=== PATIENT | female | born 1990 | race American Indian/Alaskan Native ===

== ENCOUNTER 2020-04-10 18:38 | Emergency (ER) | payer SELFPAY ==
--- NOTE | 2020-04-10 21:28 | Emergency Department Report ---
ED General Adult HPI - General Chief complaint: Urogenital-Female Stated complaint: VAGINAL DISCOMFORT Time Seen by Provider: 04/10/20 20:48 Source: patient Mode of arrival: Ambulatory Limitations: No Limitations - History of Present Illness Initial comments: 30-year-old -Ivorian female patient with history of hypertension presents with possible retained foreign body of the vagina x 3 days. Patient states 3 days ago she inserted 3 vaginal PERRL in her vaginal canal. She states when she went to remove them today, she only noted 1 vaginal domenic. She denies any pain, vaginal discharge, dysuria/hematuria/urinary frequency, or skin lesions/changes. Patient states it is possible that some of the pearls have fallen out over the past 3 days. - Related Data Allergies Allergy/AdvReac Type Severity Reaction Status Date / Time Penicillins Allergy Hives Verified 04/10/20 18:58 ED Review of Systems ROS: Stated complaint: VAGINAL DISCOMFORT Other details as noted in HPI Constitutional: denies: chills, fever Gastrointestinal: denies: abdominal pain, nausea, vomiting Genitourinary: denies: urgency, dysuria, frequency, hematuria, discharge, abnormal menses, dyspareunia Musculoskeletal: denies: back pain Skin: denies: rash, lesions, change in color Hematological/Lymphatic: denies: swollen glands ED Past Medical Hx - Past Medical History Previous Medical History?: Yes Hx Hypertension: Yes - Surgical History Past Surgical History?: No - Social History Smoking Status: Never Smoker Substance Use Type: Alcohol ED Physical Exam - General Limitations: No Limitations General appearance: alert, in no apparent distress, obese - Head Head exam: Present: atraumatic, normocephalic - Eye Eye exam: Present: normal appearance - Respiratory Respiratory exam: Absent: respiratory distress - Cardiovascular Cardiovascular Exam: Present: regular rate - External exam: Present: normal external exam Speculum exam: Present: normal speculum exam. Absent: erythema, foreign body, tissue - Neurological Exam Neurological exam: Present: alert, oriented X3, normal gait - Psychiatric Psychiatric exam: Present: normal affect, normal mood - Skin Skin exam: Present: warm, dry, intact, normal color. Absent: rash ED Course Vital Signs 04/10/20 04/10/20 04/10/20 18:59 21:20 21:35 Temperature 99.2 F Pulse Rate 103 H 99 H 96 H Respiratory 20 Rate Blood Pressure 193/113 Blood Pressure 182/105 [Right] O2 Sat by Pulse 100 100 100 Oximetry 04/10/20 21:36 Temperature Pulse Rate 94 H Respiratory 14 Rate Blood Pressure Blood Pressure [Right] O2 Sat by Pulse 97 Oximetry ED Medical Decision Making - Medical Decision Making 30-year-old -Ivorian female patient with history of hypertension presents with possible retained foreign body of the vagina x 3 days. Patient states 3 days ago she inserted 3 vaginal PERRL in her vaginal canal. She states when she went to remove them today, she only noted 1 vaginal domenic. She denies any pain, vaginal discharge, dysuria/hematuria/urinary frequency, or skin lesions/changes. Patient states it is possible that some of the pearls have fallen out over the past 3 days. No vaginal foreign bodies noted on pelvic exam. Patient's blood pressure noted to be significantly elevated. She does have a history of hypertension and states she has not taken her blood pressure medication today. Patient denies any headache, vision changes, chest pain, shortness of breath, dizziness, or other neurological symptoms. On repeat, her blood pressure is 182/105. Patient states she does currently have blood pressure medication at home and states she will take it once she gets there tonight. Discussed signs and symptoms that should prompt immediate return to the emergency department in detail patient verbalized understanding. Also recommend follow-up with primary care doctor within 2 days. She is well-appearing and stable for discharge home peer Critical care attestation.: If time is entered above; I have spent that time in minutes in the direct care of this critically ill patient, excluding procedure time. ED Disposition Clinical Impression: Uncontrolled hypertension Foreign body of vagina Qualifiers: Encounter type: initial encounter Qualified Code(s): T19.2XXA - Foreign body in vulva and vagina, initial encounter Disposition: DC-01 TO HOME OR SELFCARE Is pt being admited?: No Condition: Stable Instructions: Vaginal Foreign Body, Hypertension, Adult, Hypertension (ED) Referrals: PRIMARY CARE,MD [Primary Care Provider] - as needed
[2020-04-10 21:36] VITALS: BP 182/105
== END 2020-04-10 21:37 | disposition home or self-care (01) ==
LOC: ED 18:38
DX: T19.2XXA Foreign body in vulva and vagina, initial encounter (principal); I10 Essential (primary) hypertension; Z88.0 Allergy status to penicillin; X58.XXXA Exposure to other specified factors, initial encounter; Y93.89 Activity, other specified; Y92.89 Other specified places as the place of occurrence of the external cause; Y99.8 Other external cause status
CPT/HCPCS: 99282

== ENCOUNTER 2020-07-06 10:15 | Emergency (ER) | payer BC ==
[2020-07-06 13:46] LABS: Basophils % (Auto) 0.5 % (0.0-1.8); Eosinophils # (Auto) 0.1 K/mm3 (0.0-0.4); Eosinophils % (Auto) 2.1 % (0.0-4.3); Hematocrit 38.3 % (30.3-42.9); Hemoglobin 12.1 gm/dl (10.1-14.3); Lymphocytes % (Auto) 31.3 % (13.4-35.0); Mean Corpuscular HGB Conc 32 % (30-34); Mean Corpuscular Volume 72 fl (79-97); Monocytes # (Auto) 0.4 K/mm3 (0.0-0.8); Monocytes % (Auto) 6.8 % (0.0-7.3); Platelet Count 287 K/mm3 (140-440); Red Blood Count 5.35 M/mm3 (3.65-5.03); Red Cell Distribution Width 16.4 % (13.2-15.2)
[2020-07-06 14:03] LABS: Alanine Aminotransferase 35 units/L (7-56); Albumin 3.5 g/dL (3.9-5); Blood Urea Nitrogen 6 mg/dL (7-17); Calcium 8.5 mg/dL (8.4-10.2); Hemolysis Index 3
[2020-07-06 14:04] LABS: BUN/Creatinine Ratio 9
[2020-07-06 17:01] LABS: Bilirubin,Urine NEG (Negative); Blood,Urine NEG (Negative); Color,Urine Straw (Yellow); Protein,Urine <15 mg/dL mg/dL (Negative); Urobilinogen,Urine < 2.0 mg/dL (<2.0); WBC,Urine < 1.0 /HPF (0.0-6.0)
--- NOTE | 2020-07-06 20:33 | Emergency Department Report ---
ED Abdominal Pain HPI - General Chief Complaint: Abdominal Pain Stated Complaint: ABD/BACK PAIN PUI?: No Time Seen by Provider: 07/06/20 16:46 Source: patient Mode of arrival: Ambulatory Limitations: No Limitations - History of Present Illness Initial Comments: Patient is a 30-year-old female that presents emergency room with complaints of right flank pain rating to her right lower quadrant. Patient states symptoms started 5 days ago. Patient dates his symptoms are worsening. Patient denies nausea vomiting. Patient states the pain is a 7 out of 10. Patient states the pain is better with rest and worse with movement. Patient denies diarrhea. Patient denies chest pain or shortness of breath. Patient denies fever and chills. Patient denies dysuria. Patient denies recent travel. Patient denies recent international travel. Patient denies exposure to the novel coronavirus. Patient denies sick contacts. Patient denies fever and chills. Patient denies cough. Patient denies diarrhea. Patient denies coming in contact with anybody with symptoms of the novel coronavirus. Patient states she has a history of hypertension but ran out of her hypertensive medication 3 weeks ago. Patient is taking amlodipine 10 mg daily. MD Complaint: abdominal pain, flank pain -: Sudden, days(s) Location: R flank Radiation: RLQ Migration to: no migration Severity: severe Severity scale (0 -10): 7 Quality: stabbing Consistency: constant Improves With: rest Worsens With: movement Associated Symptoms: denies: nausea, vomiting, diarrhea, fever, chills, constipation, dysuria, hematemesis, hematochezia, melena, hematuria, anorexia, syncope - Related Data Previous Rx's Medication Instructions Recorded Last Taken Type Amlodipine Besylate [Norvasc] 10 mg PO DAILY #30 tablet 07/06/20 Unknown Rx Allergies Allergy/AdvReac Type Severity Reaction Status Date / Time Penicillins Allergy Hives Verified 04/10/20 18:58 ED Review of Systems ROS: Stated complaint: ABD/BACK PAIN Other details as noted in HPI Constitutional: denies: chills, fever Eyes: denies: eye pain, eye discharge, vision change ENT: denies: ear pain, throat pain Respiratory: denies: cough, shortness of breath, wheezing Cardiovascular: denies: chest pain, palpitations Endocrine: no symptoms reported Gastrointestinal: as per HPI, abdominal pain. denies: nausea, diarrhea Genitourinary: denies: urgency, dysuria, discharge Musculoskeletal: denies: back pain, joint swelling, arthralgia Skin: denies: rash, lesions Neurological: denies: headache, weakness, paresthesias Psychiatric: denies: anxiety, depression Hematological/Lymphatic: denies: easy bleeding, easy bruising ED Past Medical Hx - Past Medical History Previous Medical History?: Yes Hx Hypertension: Yes - Surgical History Past Surgical History?: No - Family History Family history: no significant - Social History Smoking Status: Never Smoker Substance Use Type: Alcohol - Medications Home Medications: Home Medications Medication Instructions Recorded Confirmed Last Taken Type Amlodipine Besylate [Norvasc] 10 mg PO DAILY #30 tablet 07/06/20 Unknown Rx ED Physical Exam - General Limitations: No Limitations General appearance: alert, in no apparent distress - Head Head exam: Present: atraumatic, normocephalic - Eye Eye exam: Present: normal appearance - ENT ENT exam: Present: mucous membranes moist - Neck Neck exam: Present: normal inspection - Respiratory Respiratory exam: Present: normal lung sounds bilaterally. Absent: respiratory distress - Cardiovascular Cardiovascular Exam: Present: regular rate, normal rhythm. Absent: systolic murmur, diastolic murmur, rubs, gallop - GI/Abdominal GI/Abdominal exam: Present: soft, tenderness (Right flank tenderness to palpation.), normal bowel sounds - Extremities Exam Extremities exam: Present: normal inspection - Back Exam Back exam: Present: normal inspection - Neurological Exam Neurological exam: Present: alert, oriented X3 - Psychiatric Psychiatric exam: Present: normal affect, normal mood - Skin Skin exam: Present: warm, dry, intact, normal color. Absent: rash ED Course Vital Signs 07/06/20 11:03 Temperature 98.2 F Pulse Rate 80 Respiratory 18 Rate Blood Pressure 207/109 [Right] O2 Sat by Pulse 100 Oximetry - Reevaluation(s) Reevaluation #1: I discussed all results and clinical findings with patient. I discussed plan of care with patient. Patient agrees with plan of care. Patient is stable for discharge. Patient will be discharged home. Patient given discharge instructions. Patient voiced understanding of discharge instructions. 07/06/20 21:55 ED Medical Decision Making - Lab Data Result diagrams: 07/06/20 13:03 07/06/20 13:03 - Radiology Data Radiology results: report reviewed CT ABDOMEN AND PELVIS WITHOUT CONTRAST INDICATION / CLINICAL INFORMATION: abd pain. TECHNIQUE: Axial CT images were obtained through the abdomen and pelvis without IV contrast. All CT scans at this location are performed using CT dose reduction for ALARA by means of automated exposure control. COMPARISON: None available. FINDINGS: LOWER CHEST: No significant abnormality. LIVER: No significant abnormality. GALLBLADDER: Tiny gallstones are noted in the decompressed urinary bladder. No acute cholecystitis. BILE DUCTS: No significant abnormality. PANCREAS: No significant abnormality. SPLEEN: No significant abnormality. ADRENALS: No significant abnormality. RIGHT KIDNEY / URETER: No significant abnormality. LEFT KIDNEY / URETER: No significant abnormality. STOMACH / SMALL BOWEL: No significant abnormality. COLON: Mild colonic diverticulosis without diverticulitis. APPENDIX: No significant abnormality. PERITONEUM: No free fluid. No free air. No fluid collection. LYMPH NODES: Shotty lymph nodes are noted in the retroperitoneum and root of the mesentery. None of which are enlarged according to CT size criteria. AORTA / ARTERIES: No significant abnormality. IVC / VEINS: No significant abnormality. URINARY BLADDER: No significant abnormality. REPRODUCTIVE ORGANS: Simple cysts are noted of bilateral ovaries, the largest on the left measures 5.3 cm and is likely physiologic. ADDITIONAL FINDINGS: None. SKELETAL SYSTEM: Mild degenerative changes are noted of the lower lumbar spine. Transitional vertebral anatomy is noted. IMPRESSION: 1. Cholelithiasis without acute cholecystitis. 2. Physiologic changes are noted of the uterus and bilateral ovaries. 3. Mild colonic diverticulosis without diverticulitis. - Medical Decision Making Patient is a 30-year-old female that presents emergency room with complaints of right flank pain and right abdominal pain. Patient had labs done which were essentially unremarkable. Patient had a CT scan to rule out a kidney stone or other acute process of the abdomen. Patient found to have cholelithiasis without cholecystitis and no other acute findings noted on the CT scan. Patient is stable for discharge. Patient will be discharged home. Patient given discharge instructions. - Differential Diagnosis Cholecystitis, cholelithiasis, kidney stone, flank pain, abdominal pain Critical care attestation.: If time is entered above; I have spent that time in minutes in the direct care of this critically ill patient, excluding procedure time. ED Disposition Clinical Impression: Right flank pain, Biliary colic Abdominal pain Qualifiers: Abdominal location: right lower quadrant Qualified Code(s): R10.31 - Right lower quadrant pain Cholelithiasis Qualifiers: Cholelithiasis location: gallbladder Cholecystitis presence: without cholecystitis Biliary obstruction: without biliary obstruction Qualified Code(s): K80.20 - Calculus of gallbladder without cholecystitis without obstruction Ovarian cyst Qualifiers: Laterality: unspecified laterality Qualified Code(s): N83.209 - Unspecified ovarian cyst, unspecified side Hypertension Qualifiers: Hypertension type: essential hypertension Qualified Code(s): I10 - Essential (primary) hypertension Disposition: TO HOME OR SELFCARE Is pt being admited?: No Does the pt Need Aspirin: No Condition: Stable Instructions: Abdominal Pain (ED), Cholelithiasis, Flank Pain, Adult, [id number], Biliary Colic, Adult, Gallbladder Eating Plan, Hypertension (ED) Additional Instructions: Patient to follow-up with primary care in 2 to 3 days. Patient to follow-up with general surgery and NETWORK TECHNICIAN in 2 to 3 days. Patient to rest. Patient to increase water. Patient to avoid fatty foods. Patient to eat a low-salt heart healthy diet. Patient to monitor blood pressure at home. Patient to keep a blood pressure log. Patient to take blood pressure log to all follow-up appo intments. Patient to take Tylenol or ibuprofen as needed for pain. Patient to take meds as directed. Patient to return to the ER if condition worsens, changes or new symptoms arise. Prescriptions: Amlodipine Besylate [Norvasc] 10 mg PO DAILY #30 tablet Referrals: PRIMARY CARE, [Primary Care Provider] - 2-3 Days DEON WISEMAN MD [Staff Physician] - 2-3 Days CARLITA SHIN DO [Staff Physician] - 2-3 Days Time of Disposition: 21:58
--- NOTE | 2020-07-06 21:35 | Cat Scan Report ---
CT ABDOMEN AND PELVIS WITHOUT CONTRAST INDICATION / CLINICAL INFORMATION: abd pain. TECHNIQUE: Axial CT images were obtained through the abdomen and pelvis without IV contrast. All CT scans at [facility] location are performed using CT dose reduction for ALARA by means of automated exposure control. COMPARISON: None available. FINDINGS: LOWER CHEST: No significant abnormality. LIVER: No significant abnormality. GALLBLADDER: Tiny gallstones are noted in the decompressed urinary bladder. No acute cholecystitis. BILE DUCTS: No significant abnormality. PANCREAS: No significant abnormality. SPLEEN: No significant abnormality. ADRENALS: No significant abnormality. RIGHT KIDNEY / URETER: No significant abnormality. LEFT KIDNEY / URETER: No significant abnormality. STOMACH / SMALL BOWEL: No significant abnormality. COLON: Mild colonic diverticulosis without diverticulitis. APPENDIX: No significant abnormality. PERITONEUM: No free fluid. No free air. No fluid collection. LYMPH NODES: Shotty lymph nodes are noted in the retroperitoneum and root of the mesentery. None of w hich are enlarged according to CT size criteria. AORTA / ARTERIES: No significant abnormality. IVC / VEINS: No significant abnormality. URINARY BLADDER: No significant abnormality. REPRODUCTIVE ORGANS: Simple cysts are noted of bilateral ovaries, the largest on the left measures 5. 3 cm and is likely physiologic. ADDITIONAL FINDINGS: None. SKELETAL SYSTEM: Mild degenerative changes are noted of the lower lumbar spine. Transitional vertebra l anatomy is noted. IMPRESSION: 1. Cholelithiasis without acute cholecystitis. 2. Physiologic changes are noted of the uterus and bilateral ovaries. 3. Mild colonic diverticulosis without diverticulitis. Signer Name: Reinier Roca MD Signed: 07/06/2020 9:30 PM Workstation Name: [id number]
[2020-07-06 22:04] VITALS: BP 160/97
== END 2020-07-06 22:10 | disposition home or self-care (01) ==
LOC: ED 10:15
DX: K80.20 Calculus of gallbladder without cholecystitis without obstruction (principal); N83.201 Unspecified ovarian cyst, right side; I10 Essential (primary) hypertension; Z79.899 Other long term (current) drug therapy; Z88.0 Allergy status to penicillin
CPT/HCPCS: 36415; 74176; 80053; 81001; 83690; 84702; 85025

== ENCOUNTER 2020-10-13 07:47 | Outpatient (CLI) | payer BC ==
--- NOTE | 2020-10-13 08:55 | Ultrasound Report ---
ULTRASOUND ABDOMEN, COMPLETE INDICATION / CLINICAL INFORMATION: CALCULUS OF GALLBLADDER W/O CHOLECYSTITIS W/O OBSTRUCTION. COMPARISON: None available. FINDINGS: PANCREAS: No significant abnormality. ABDOMINAL AORTA: No significant abnormality. IVC: No significant abnormality. LIVER: No significant abnormality. GALLBLADDER: No significant abnormality. BILE DUCTS: No significant abnormality. Common bile duct measures 2 mm. KIDNEYS: Right: 8.6 cm Left: 8.9 cm SPLEEN: No significant abnormality. FREE FLUID: None. ADDITIONAL FINDINGS: None. IMPRESSION: 1. Mild renal atrophy. No other acute findings. Signer Name: Gian Enriquez MD Signed: 10/13/2020 8:51 AM Workstation Name: [email or web address]
== END 2020-10-13 07:48 | disposition home or self-care (01) ==
LOC: US 07:47
PROVIDERS: ATTEND Surgery
DX: N26.1 Atrophy of kidney (terminal) (principal); K80.20 Calculus of gallbladder without cholecystitis without obstruction
CPT/HCPCS: 76700

== ENCOUNTER 2020-11-04 06:05 | Day surgery (SDC) | payer BC ==
[2020-11-03 10:15] LABS: Blood Urea Nitrogen 10 mg/dL (7-17); Calcium 9.4 mg/dL (8.4-10.2); Hemolysis Index 3
[2020-11-03 10:25] LABS: BUN/Creatinine Ratio 17
[2020-11-03 11:13] LABS: Hematocrit 33.7 % (30.3-42.9); Mean Corpuscular HGB Conc 33 % (30-34); Mean Corpuscular Volume 72 fl (79-97); Platelet Count 274 K/mm3 (140-440); Red Cell Distribution Width 16.7 % (13.2-15.2)
[2020-11-04] MEDS ORDERED: VANCOMYCIN/NS 1 GM/250 ML 1 GM/250 ML BAG IV NR (07:00)
[2020-11-04] MEDS ORDERED: VANCOMYCIN 1,750 MG in SODIUM CHLORIDE 0.9% 500 ML 500 ML IV NR (07:00)
[2020-11-04] MEDS ORDERED: fentaNYL 100 MCG/2 ML INJ ONE (07:07)
[2020-11-04] MEDS ORDERED: LIDOCAINE MPF (2%) 20 MG/1 ML VIAL 5 ML ONE (07:07)
[2020-11-04] MEDS ORDERED: ONDANSETRON 4 MG/2 ML INJ ONE (07:07)
[2020-11-04] MEDS ORDERED: dexAMETHasone 20 MG/5 ML VIAL ONE (07:07)
[2020-11-04] MEDS ORDERED: propofoL 200 MG/20 ML VIAL IV ONE (07:07)
[2020-11-04] MEDS ORDERED: LIDOCAINE (1%) 10 MG/1 ML VIAL 20 ML MDV ONE (07:11)
[2020-11-04] MEDS ORDERED: BUPIVACAINE/PF (0.25%) 2.5 MG/ML 30 ML VIAL INFILTRATI ONE ×2 (07:11→08:19)
--- NOTE | 2020-11-04 07:13 | Anesthesia Day of Surgery ---
Anesthesia Day of Surgery - Day of Surgery Patient Examined: Yes Patient H&P Reviewed: Yes Patient is NPO: Yes
--- NOTE | 2020-11-04 07:14 | Anesthesia Consultation ---
Anesthesia Consult and Med Hx Date of service: 11/04/20 - Airway Anesthetic Teeth Evaluation: Chipped ROM Head & Neck: Adequate Mental/Hyoid Distance: Adequate Mallampati Class: Class II Intubation Access Assessment: Good - Pre-Operative Health Status ASA Pre-Surgery Classification: ASA3 Proposed Anesthetic Plan: General - Pulmonary Hx Smoking: Yes Hx Asthma: Yes ( CHILD ONLY) Hx Sleep Apnea: No (OTILIO PRE SCREEN HIGH RISK) - Cardiovascular System Hx Hypertension: Yes (X 10 YRS) - Central Nervous System Hx Psychiatric Problems: No - Gastrointestinal Hx Gastroesophageal Reflux Disease: No - Hematic Hx Anemia: No Hx Sickle Cell Disease: No - Other Systems Hx Substance Use: Yes (THC- OCC.) Hx Cancer: No Hx Obesity: Yes
[2020-11-04] MEDS ORDERED: SCOPOLAMINE TRANSDERMAL PATCH 72 HR TD NR (08:00)
[2020-11-04] MEDS ORDERED: CELECOXIB 200 MG CAP PO NR (08:00)
[2020-11-04] MEDS ORDERED: ONDANSETRON 4 MG/2 ML INJ IV PRN (08:00)
[2020-11-04] MEDS ORDERED: HYDROmorphone 1 MG/1 ML INJ IV PRN ×2 (08:00)
[2020-11-04] MEDS ORDERED: MAGNESIUM OXIDE 400 MG TAB PO SCH (08:00)
[2020-11-04] MEDS ORDERED: ACETAMINOPHEN 500 MG TAB PO SCH (08:00)
[2020-11-04] MEDS ORDERED: MIDAZOLAM 2 MG/2 ML INJ IV NR (08:00)
[2020-11-04] MEDS ORDERED: LACTATED RINGERS 1,000 ML IV SCH (08:00)
[2020-11-04] MEDS ORDERED: LIDOCAINE (1%) 10 MG/1 ML VIAL 20 ML MDV INFILTRATI ONE (08:18)
[2020-11-04] MEDS ORDERED: SODIUM CHLORIDE 0.9% IRR 1,500 ML BOTTLE IR ONE (08:20)
[2020-11-04] MEDS ORDERED: SUCCINYLCHOLINE CHLORIDE 200 MG/10 ML INJ MDV ONE (08:30)
[2020-11-04] MEDS ORDERED: KETOROLAC 30 MG/1 ML INJ ONE (08:35)
[2020-11-04] MEDS ORDERED: NEOSTIGMINE 10MG/10 ML INJ MDV ONE ×3 (08:35)
[2020-11-04] MEDS ORDERED: SUGAMMADEX SODIUM 200 MG/2 ML VIAL IV ONE (08:45)
--- NOTE | 2020-11-04 08:52 | Short Stay Summary ---
Short Stay Documentation Date of service: 11/04/20 - History Principal diagnosis: symptomatic cholelithiasis H&P: obtained from office - Allergies and Medications Current Medications: Allergies Penicillins Allergy (Verified 04/10/20 18:58) Hives Home Medications Medication Instructions Recorded Confirmed Last Taken Type Losartan/Hydrochlorothiazide 1 each PO DAILY 10/26/20 10/26/20 Unknown History [Losartan-Hctz 50-12.5 mg Tab] Active Medications Acetaminophen (Acetaminophen 500 Mg Tab) 1,000 mg PO ONCE AARON Stop: 11/04/20 21:00 Celecoxib (Celecoxib 200 Mg Cap) 400 mg PO PREOP NR Stop: 11/04/20 21:00 Hydromorphone HCl (Hydromorphone 1 Mg/1 Ml Inj) 0.25 mg IV Q10MIN PRN PRN Reason: Pain, Moderate (4-6) Stop: 11/04/20 21:00 Hydromorphone HCl (Hydromorphone 1 Mg/1 Ml Inj) 0.5 mg IV Q10MIN PRN PRN Reason: Pain , Severe (7-10) Stop: 11/04/20 17:00 Vancomycin HCl 1,750 mg/ (Sodium Chloride) 535 mls @ 333.333 mls/hr IV PREOP NR Stop: 11/04/20 21:00 Lactated Ringer's (Lactated Ringers) 1,000 mls @ 125 mls/hr IV DIRECT AARON Magnesium Oxide (Magnesium Oxide 400 Mg Tab) 400 mg PO ONCE AARON Stop: 11/04/20 21:00 Midazolam HCl (Midazolam 2 Mg/2 Ml Inj) 2 mg IV PREOP NR Stop: 11/04/20 23:59 Ondansetron HCl (Ondansetron 4 Mg/2 Ml Inj) 4 mg IV ONCE PRN PRN Reason: Nausea And Vomiting Stop: 11/04/20 21:00 Scopolamine (Scopolamine Transdermal Patch 72 Hr) 1 each TD PREOP NR Stop: 11/04/20 21:00 - Brief post op/procedure progress note Date of procedure: 11/04/20 Pre-op diagnosis: symptomatic cholelithiasis Post-op diagnosis: same Procedure: laparoscopic cholecystectomy Anesthesia: GETA, local Findings: contracted gallbladder. Adhesions from liver to abdominal wall Surgeon: CARLITA SHIN (Assist: FROILAN CruzA) Estimated blood loss: minimal Pathology: list (gallbladder) Specimen disposition: to lab Condition: stable - Hospital course Hospital course: Pt observed in PACU and discharged when criteria met - Disposition Condition at discharge: Good Disposition: 01 HOME / SELF CARE / HOMELESS Short Stay Discharge Plan Activity: other (No heavy lifting for 1 weel) Diet: low fat Wound: open to air, per your surgeon's advice Additional Instructions: SEE PRINTED DISCHARGE INSTRUCTIONS Follow up with: PRIMARY CARE, [Primary Care Provider] - 7 Days CARLITA SHIN DO [Staff Physician] - 14 Days Prescriptions: HYDROcodone/APAP 5-325 [Tyner 5/325] 1 each PO Q6HR PRN #20 tablet PRN Reason: Pain , Severe (7-10)
[2020-11-04 10:49] VITALS: BP 137/79
--- NOTE | 2020-11-04 14:58 | Post Anesthesia Evaluation ---
- Post Anesthesia Evaluation Patient Participated: Yes Airway Patent: Yes Stable Respiratory Function: Yes Nausea/Vomiting: No Temp > 96.8F: Yes Pain Manageable: Yes Adequeate Hydration: Yes Anesthesia Complications: No Block Receding Appropriately: Not Applicable Patient on Ventilator: No
--- NOTE | 2020-11-04 15:52 | Operative Report ---
Operative Report Operative Report: Date of procedure: 11/04/20 Pre-op diagnosis: symptomatic cholelithiasis Post-op diagnosis: same Procedure: laparoscopic cholecystectomy Anesthesia: GETA, local Findings: contracted gallbladder. Adhesions from liver to abdominal wall Surgeon: CARLITA SHIN DO Assist: REBEL Cruz Estimated blood loss: minimal Pathology: list (gallbladder) Specimen disposition: to lab Condition: stable Hospital course: Pt observed in PACU and discharged when criteria met HPI an indication: 30-year-old female who presented to the surgery clinic with complaints of intermittent sharp right upper quadrant abdominal pain. The patient was found to have cholelithiasis on right upper quadrant ultrasound without evidence of cholelithiasis or biliary ductal dilatation. Patient symptoms are consistent with symptomatic cholelithiasis. It was recommended that the patient undergo cholecystectomy. All risks, benefits, alternatives to surgery were discussed in detail and questions answered. Consent was obtained for laparoscopic, possible open cholecystectomy, possible cholangiogram. Procedure in detail: The patient was identified in the preoperative area and taken back to the operating room, placed on the operating room table in supine position. After anesthesia was induced, the abdomen was prepped and draped in usual sterile fashion and timeout was performed. Local anesthetic was infiltrated into all of the skin incision sites. Using an 11 blade, a supraumbilical incision was made through which a Veress needle was inserted. The position of the veress needle was confirmed with the saline drop test and the abdomen was then insufflated to 15 mmHg without incident. The veress needle was then removed and a 5 mm Optiview trocar placed through this incision. The abdomen was then inspected and there was no underlying injury to any of the abdominal contents. An additional 12 mm subxyphoid port, and 2, 5mm RUQ ports were then placed under direct visualization. The patient was then placed into reverse Trendelberg and tilted to the left. The gallbladder was visualized and appeared contracted. There were also adhesions from the liver to the anterior abdominal wall. The adhesions were dissected using hook electrocautery in order to facilitate better retraction of the gallbladder. The gallbladder fundus was grasped and retracted cephalad. The infundibulum was grasped and retracted laterally. The cystic duct and artery were then very carefully skeletonized. These were seen as the only 2 structures entering the gallbladder and the critical view was successfully obtained. 2 clips were placed on the proximal aspect of the cystic artery and one distally, and 3 clips on the proximal aspect of the cystic duct and 1 distally. The structures were transected in between the clips using EndoShears. The gallbladder was dissected off the liver bed using hook electrocautery. The gallbladder was placed into a Endo Catch bag and removed from the abdomen via the 12mm port. The gallbladder fossa was then inspected and there was no identifiable bleeding or bile leakage. Hemostasis was ensured. The clips on the cystic duct and artery were visualized and intact. The patient was then placed into neutral position. The 12 mm port fascia was closed with interrupted 0 Vicryl sutures using the Feliciano Ortiz device. The remaining ports were removed under direct visualization. Skin incisions were closed with 4-0 Monocryl subcuticular stitches and skin glue. All skin incisions were once again infiltrated with local anesthetic. At the end case all sponge, instrument, sharp counts were correct 2. The patient was awoken from anesthesia, extubated, and taken to PACU in stable condition.
== END 2020-11-04 10:35 | disposition home or self-care (01) ==
LOC: OR 06:05
PROVIDERS: ATTEND Surgery
DX: K80.10 Calculus of gallbladder with chronic cholecystitis without obstruction (principal); K57.90 Diverticulosis of intestine, part unspecified, without perforation or abscess without bleeding; J45.909 Unspecified asthma, uncomplicated; I10 Essential (primary) hypertension; E66.9 Obesity, unspecified; Z79.899 Other long term (current) drug therapy; Z98.890 Other specified postprocedural states; Z88.0 Allergy status to penicillin; Z68.41 Body mass index [BMI] 40.0-44.9, adult; Z20.822 Contact with and (suspected) exposure to COVID-19
CPT/HCPCS: 36415; 47562; 80048; 84703; 85027; 88304; J0330; J1100; J1170; J1885; J2250; J2405; J2704; J2710; J3010; J3370; J7040; J7120; U0003